=== PATIENT | male | born 1965 | race Two or more races ===

== ENCOUNTER 2017-10-18 18:22 | Emergency (ER) | payer SELFPAY ==
[~2017-10-18] VITALS: Ht 165.1 cm; Wt 127.0 kg
[2017-10-18 18:33] VITALS: BP 100/57
[2017-10-18] MEDS ORDERED: Tetanus/Diptheria/Pertussis Vaccine 0.5ml Syr IM ONE ×2 (18:38→18:45)
[2017-10-18] MEDS ORDERED: Tetracaine 0.5% Opth 4ml Soln ONE (19:04)
[2017-10-18] MEDS ORDERED: Fluorescein Strips ONE (19:04)
[2017-10-18] MEDS ORDERED: Lidocaine 1% MPF 10mg/ml 5ml ONE (19:05)
--- NOTE | 2017-10-18 19:09 | Diagnostic Imaging Report ---
EXAM: CT Maxillofacial Without Intravenous Contrast CLINICAL HISTORY: PAIN TECHNIQUE: Axial computed tomography images of the face without intravenous contrast. CTDI is 98 mGy and DLP is 1946 mGy-cm. One or more of the following dose reduction techniques were used: automated exposure control, adjustment of the mA and/or kV according to patient size, use of iterative reconstruction technique. Coronal reformatted images were created and reviewed. Axial reformatted images were created and reviewed. COMPARISON: CT head 10/18/17 at 1840 hrs. FINDINGS: Bones/joints: No fracture or misalignment. Soft tissues: Bilateral frontal scalp hematomas and right periorbital hematoma. Orbits: Bilateral proptosis of uncertain etiology, right greater than left, this could be related to retrobulbar fat. No retrobulbar hematoma or mass. Intact right globe. Sinuses: Unremarkable. No air-fluid levels. IMPRESSION: 1. Please see dedicated CT head report for intracranial structures discussion. 2. No fracture or misalignment. 3. Bilateral proptosis of uncertain etiology, right greater than left, this could be related to retrobulbar fat. No retrobulbar hematoma or mass. 4. Bilateral frontal scalp hematomas and right periorbital hematoma. 5. Intact right globe.
--- NOTE | 2017-10-18 19:11 | Diagnostic Imaging Report ---
EXAM: CT Head Without Intravenous Contrast CLINICAL HISTORY: PAIN TECHNIQUE: Axial computed tomography images of the head/brain without intravenous contrast. CTDI is 98 mGy and DLP is 1946 mGy-cm. One or more of the following dose reduction techniques were used: automated exposure control, adjustment of the mA and/or kV according to patient size, use of iterative reconstruction technique. COMPARISON: Maxillofacial CT 10/18/17 at 1840 hrs. FINDINGS: Brain: Unremarkable. No hemorrhage. No significant white matter disease. No edema. Ventricles: Unremarkable. No ventriculomegaly. Bones/joints: Unremarkable. No acute fracture. Soft tissues: Bilateral frontal scalp hematomas and right periorbital hematoma. Sinuses: Unremarkable as visualized. No acute sinusitis. Mastoid air cells: Unremarkable as visualized. No mastoid effusion. IMPRESSION: 1. Normal unenhanced CT brain. 2. No acute intracranial pathology. 3. Bilateral frontal scalp hematomas and right periorbital hematoma. 4. Please see dedicated imaging for maxillofacial report.
[2017-10-18 19:30] VITALS: BP 106/62
[2017-10-18] MEDS ORDERED: Acetaminophen 500mg (ES) tab ORAL ONE (20:15)
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
[2017-10-18] MEDS ORDERED: AKTOB1 DROP RIGHT EYE (20:20)
[2017-10-18] MEDS ORDERED: NORCO 5-325 TA1 EACH ORAL (20:20)
[2017-10-18 20:30] VITALS: BP 110/71
[2017-10-18 20:35] VITALS: BP 110/71
== END 2017-10-18 20:35 | disposition home or self-care (01) ==
LOC: EDBD 18:22 → EMR 18:36
DX: S00.83XA Contusion of other part of head, initial encounter (principal); S01.111A Laceration without foreign body of right eyelid and periocular area, initial encounter; Y04.2XXA Assault by strike against or bumped into by another person, initial encounter; Y92.89 Other specified places as the place of occurrence of the external cause; Z23 Encounter for immunization; I10 Essential (primary) hypertension; E11.9 Type 2 diabetes mellitus without complications
CPT/HCPCS: 70450; 70486; 90471; 90715; 96372; 99284